=== PATIENT | male | born 1970 | race Caucasian/White ===

== ENCOUNTER → 2018-08-08 | Outpatient (CLI) | payer BC ==
[2018-08-08 15:56] LABS: URINE APPEARANCE CLEAR; URINE BILIRUBIN NEGATIVE (NEGATIVE); URINE BLOOD TRACE (NEGATIVE); URINE COLOR YELLOW; URINE GLUCOSE NEGATIVE (NEGATIVE); URINE KETONE NEGATIVE (NEGATIVE); URINE LEUKOCYTE ESTERASE NEGATIVE (NEGATIVE); URINE NITRATE NEGATIVE (NEGATIVE); URINE PROTEIN(semi-quant) TRACE mg/dL (NEGATIVE); URINE UROBILINOGEN NORMAL (NORMAL); URINE WBC 0-1 /hpf (0-3)
[2018-08-08 15:57] LABS: URINE MUCUS PRESENT (NOT PRESENT)
== END ==
LOC: LAB 14:19
PROVIDERS: Family Medicine
DX: R31.9 Hematuria, unspecified (principal); R39.15 Urgency of urination; R10.11 Right upper quadrant pain; Z72.0 Tobacco use

== ENCOUNTER → 2018-08-15 | Outpatient (CLI) | payer BC ==
[2018-08-15 09:01] LABS: ALBUMIN 4.2 g/dL (3.5-5.0); CALCIUM 9.1 mg/dL (8.4-10.2); POTASSIUM 4.2 mmol/L (3.6-5.0); TOTAL BILIRUBIN 0.6 mg/dL (0.2-1.3); TOTAL PROTEIN 7.2 g/dL (6.3-8.2)
== END ==
LOC: LAB 08:31
PROVIDERS: Family Medicine
DX: Z13.6 Encounter for screening for cardiovascular disorders (principal); R09.89 Other specified symptoms and signs involving the circulatory and respiratory systems; Z82.3 Family history of stroke

== ENCOUNTER → 2018-08-22 | Outpatient (CLI) | payer BC ==
[2018-08-22 16:35] LABS: URINE APPEARANCE CLEAR; URINE BILIRUBIN NEGATIVE (NEGATIVE); URINE BLOOD TRACE (NEGATIVE); URINE COLOR YELLOW; URINE GLUCOSE NEGATIVE (NEGATIVE); URINE KETONE NEGATIVE (NEGATIVE); URINE NITRATE NEGATIVE (NEGATIVE); URINE PROTEIN(semi-quant) TRACE mg/dL (NEGATIVE); URINE UROBILINOGEN NORMAL (NORMAL)
[2018-08-22 16:36] LABS: URINE LEUKOCYTE ESTERASE NEGATIVE (NEGATIVE); URINE WBC 0-1 /hpf (0-3)
== END ==
LOC: LAB 15:09
PROVIDERS: Family Medicine
DX: Z12.5 Encounter for screening for malignant neoplasm of prostate (principal); Z00.00 Encounter for general adult medical examination without abnormal findings; R73.09 Other abnormal glucose; R09.89 Other specified symptoms and signs involving the circulatory and respiratory systems; R31.9 Hematuria, unspecified; Z72.0 Tobacco use

== ENCOUNTER → 2018-11-30 | Outpatient (CLI) | payer BC | LOC: LAB 11:03 | DX: E88.81 Metabolic syndrome and other insulin resistance (principal); I10 Essential (primary) hypertension ==

== ENCOUNTER → 2019-08-16 | Outpatient (CLI) | payer BC ==
[~2019-08-16] VITALS: Ht 175.3 cm; Wt 103.2 kg
[~2019-08-16] MED LIST: ZESTRIL5 M1 PO
[2019-08-16 17:17] LABS: HEMATOCRIT 47.3 % (42.0-52.0); HEMOGLOBIN 15.8 g/dL (13.5-18.0); MEAN PLATELET VOLUME 10.6 fl (7.4-10.4); RED BLOOD COUNT 5.54 M/mm3 (4.20-5.60); WHITE BLOOD COUNT 8.1 K/mm3 (4.8-10.8)
[2019-08-16 17:27] LABS: POTASSIUM 3.7 mmol/L (3.5-5.1); SODIUM 140 mmol/L (136-145)
[2019-08-16 17:28] LABS: CALCIUM 9.6 mg/dL (8.3-10.5); GLUCOSE 92 mg/dL (75-110)
[2019-08-16 17:30] LABS: CARBON DIOXIDE 27 mmol/L (22-29)
[2019-08-16 17:31] VITALS: BP 148/92
[2019-08-16 18:07] LABS: TROPONIN-I < 0.03 ng/mL (<0.030)
== END ==
LOC: LAB 16:53
PROVIDERS: Family Medicine
DX: I45.10 Unspecified right bundle-branch block (principal); I10 Essential (primary) hypertension; E88.81 Metabolic syndrome and other insulin resistance; R73.03 Prediabetes

== ENCOUNTER → 2019-08-22 | Outpatient (CLI) | payer BC ==
[2019-08-16 17:31] VITALS: BP 148/92
[~2019-08-22] MED LIST changes: +TOPROL XL 25MG25 MG PO
== END ==
LOC: VAS 15:47 → RAD 16:00
DX: I10 Essential (primary) hypertension (principal); I45.10 Unspecified right bundle-branch block; R00.2 Palpitations

== ENCOUNTER 2019-08-23 19:55 | Emergency (ER) | payer BC ==
[~2019-08-23] VITALS: Ht 175.3 cm; Wt 103.2 kg
[~2019-08-23 19:55] MED LIST changes: -TOPROL XL 25MG25 MG PO
[2019-08-23 20:40] LABS: BASO # 0.1 (0.02-0.10); EOS # 0.2 (0.04-0.40); EOS % 2.9 % (0.0-4.0); HEMATOCRIT 43.8 % (42.0-52.0); HEMOGLOBIN 14.8 g/dL (13.5-18.0); LYMPH# 3.3 (1.50-4.00); MEAN CELL VOLUME 86 fl (78-100); MEAN CORPUSCULAR HEMOGLOBIN 29 pg (27-31); MEAN CORPUSCULAR HGB CONC 34 g/dL (33-37); MEAN PLATELET VOLUME 10.9 fl (7.4-10.4); MONO # 0.6 (0.20-0.80); NEU # 4.1 (1.40-6.50); PLATELET COUNT 220 K/mm3 (130-400); RED BLOOD COUNT 5.11 M/mm3 (4.20-5.60); RED CELL DISTRIBUTION WIDTH 13.7 % (11.5-14.5); WHITE BLOOD COUNT 8.4 K/mm3 (4.8-10.8)
[2019-08-23 20:47] LABS: POTASSIUM 3.7 mmol/L (3.5-5.1)
[2019-08-23 20:50] LABS: TOTAL PROTEIN 6.9 g/dL (6.4-8.3)
[2019-08-23 20:52] LABS: TOTAL BILIRUBIN 0.4 mg/dL (0.2-1.2)
[2019-08-23 21:15] LABS: D-DIMER 0.29 mg/L FEU (0.15-0.50)
[2019-08-23] MEDS ORDERED: TOPROL XL 25MG25 MG PO (22:00)
[2019-08-23 22:25] VITALS: BP 142/81
== END 2019-08-23 22:19 | disposition home or self-care (01) ==
LOC: ED 19:55
PROVIDERS: Nurse Practitioner Primary Care
DX: I10 Essential (primary) hypertension (principal); E11.9 Type 2 diabetes mellitus without complications; F17.210 Nicotine dependence, cigarettes, uncomplicated

== ENCOUNTER → 2020-01-09 | Outpatient (CLI) | payer BC ==
[~2020-01-09] MED LIST changes: +TOPROL XL 25MG25 MG PO
== END ==
LOC: LAB 12:05
DX: R00.2 Palpitations (principal)

== ENCOUNTER → 2020-10-09 | Outpatient (CLI) | payer BC ==
[2020-10-09 09:39] LABS: POTASSIUM 4.3 mmol/L (3.5-5.1)
[2020-10-09 09:40] LABS: ALBUMIN 4.1 g/dL (3.5-5.0)
[2020-10-09 09:41] LABS: CALCIUM 8.9 mg/dL (8.3-10.5)
[2020-10-09 09:42] LABS: TOTAL PROTEIN 6.9 g/dL (6.4-8.3)
[2020-10-09 09:44] LABS: TOTAL BILIRUBIN 0.8 mg/dL (0.2-1.2)
== END ==
LOC: LAB 09:03
PROVIDERS: Family Medicine
DX: E88.81 Metabolic syndrome and other insulin resistance (principal)

== ENCOUNTER → 2021-04-30 | Outpatient (CLI) | payer OTHER ==
[2021-04-30 14:42] LABS: HEMATOCRIT 45.7 % (42.0-52.0); HEMOGLOBIN 15.7 g/dL (13.5-18.0); MEAN PLATELET VOLUME 10.1 fl (7.4-10.4); RED BLOOD COUNT 5.33 M/mm3 (4.20-5.60); RED CELL DISTRIBUTION WIDTH 12.9 % (11.5-14.5); WHITE BLOOD COUNT 6.7 K/mm3 (4.8-10.8)
[2021-04-30 14:44] LABS: ALBUMIN 4.2 g/dL (3.5-5.0); POTASSIUM 3.8 mmol/L (3.5-5.1)
[2021-04-30 14:46] LABS: CALCIUM 9.2 mg/dL (8.3-10.5)
[2021-04-30 14:47] LABS: TOTAL PROTEIN 7.3 g/dL (6.4-8.3)
[2021-04-30 14:49] LABS: TOTAL BILIRUBIN 0.7 mg/dL (0.2-1.2)
[2021-04-30 14:53] LABS: MAGNESIUM 1.99 mg/dL (1.60-2.60)
== END ==
LOC: LAB 14:08
PROVIDERS: Internal Medicine Cardiovascular Disease
DX: I49.9 Cardiac arrhythmia, unspecified (principal)

== ENCOUNTER 2021-10-25 22:30 | Emergency (ER) | payer OTHER ==
[~2021-10-25] VITALS: Ht 175.3 cm; Wt 96.1 kg
[2021-10-25 23:19] LABS: BASO # 0.05 K/mm3 (0.02-0.10); EOS # 0.33 K/mm3 (0.04-0.40); EOS % 2.9 % (0.0-4.0); HEMATOCRIT 49.2 % (42.0-52.0); HEMOGLOBIN 16.3 g/dL (13.5-18.0); LYMPH# 4.15 K/mm3 (1.50-4.00); MEAN CELL VOLUME 88 fl (78-100); MEAN CORPUSCULAR HEMOGLOBIN 29 pg (27-31); MEAN CORPUSCULAR HGB CONC 33 g/dL (33-37); MEAN PLATELET VOLUME 10.4 fl (7.4-10.4); MONO # 1.23 K/mm3 (0.20-0.80); NEU # 5.46 K/mm3 (1.40-6.50); PLATELET COUNT 225 K/mm3 (130-400); RED BLOOD COUNT 5.57 M/mm3 (4.20-5.60); RED CELL DISTRIBUTION WIDTH 13.5 % (11.5-14.5); WHITE BLOOD COUNT 11.2 K/mm3 (4.8-10.8)
[2021-10-25 23:23] LABS: ALBUMIN 4.2 g/dL (3.5-5.0); SODIUM 142 mmol/L (136-145)
[2021-10-25 23:24] LABS: CALCIUM 9.8 mg/dL (8.3-10.5)
[2021-10-25] MEDS ORDERED: METOPROLOL SUCC50 M1 PO (23:24)
[2021-10-25 23:25] LABS: GLUCOSE 131 mg/dL (75-110); TOTAL PROTEIN 7.6 g/dL (6.4-8.3)
[2021-10-25] MEDS ORDERED: GOOD SENSE ASPI81 M1 PO (23:25)
[2021-10-25 23:27] LABS: CARBON DIOXIDE 24 mmol/L (22-29)
[2021-10-25 23:28] LABS: POTASSIUM 3.3 mmol/L (3.5-5.1)
[2021-10-25 23:31] LABS: AST-SGOT 23 U/L (5-34)
[2021-10-25 23:32] LABS: ALT/SGPT 29 U/L (0-55)
[2021-10-25 23:39] LABS: PARTIAL THROMBOPLASTIN TIME 21.3 SECONDS (21.0-32.0)
[2021-10-25 23:45] LABS: TROPONIN-I < 0.030 ng/mL (<0.030)
[2021-10-25 23:48] LABS: TOTAL BILIRUBIN 0.3 mg/dL (0.2-1.2)
[2021-10-25 23:58] LABS: URINE WBC 0 /hpf (0-3)
[2021-10-25 23:59] LABS: D-DIMER 0.37 mg/L FEU (0.15-0.50); PROTHROMBIN TIME 8.9 SECONDS (9.0-12.0)
[2021-10-26 00:06] LABS: URINE APPEARANCE HAZY; URINE BILIRUBIN NEGATIVE (NEGATIVE); URINE BLOOD NEGATIVE (NEGATIVE); URINE COLOR YELLOW; URINE GLUCOSE NEGATIVE (NEGATIVE); URINE KETONE NEGATIVE (NEGATIVE); URINE LEUKOCYTE ESTERASE NEGATIVE (NEGATIVE); URINE NITRATE NEGATIVE (NEGATIVE); URINE PROTEIN(semi-quant) TRACE (NEGATIVE); URINE UROBILINOGEN NORMAL (NORMAL)
[2021-10-26 00:07] LABS: URINE MUCUS PRESENT (NOT PRESENT)
[2021-10-26 07:52] LABS: BASO # 0.03 K/mm3 (0.02-0.10); EOS # 0.09 K/mm3 (0.04-0.40); EOS % 1.1 % (0.0-4.0); HEMATOCRIT 46.8 % (42.0-52.0); HEMOGLOBIN 15.5 g/dL (13.5-18.0); LYMPH# 1.85 K/mm3 (1.50-4.00); MEAN CELL VOLUME 89 fl (78-100); MEAN CORPUSCULAR HEMOGLOBIN 29 pg (27-31); MEAN CORPUSCULAR HGB CONC 33 g/dL (33-37); MEAN PLATELET VOLUME 10.4 fl (7.4-10.4); MONO # 0.71 K/mm3 (0.20-0.80); NEU # 5.36 K/mm3 (1.40-6.50); PLATELET COUNT 224 K/mm3 (130-400); RED BLOOD COUNT 5.28 M/mm3 (4.20-5.60); RED CELL DISTRIBUTION WIDTH 13.7 % (11.5-14.5); WHITE BLOOD COUNT 8.1 K/mm3 (4.8-10.8)
[2021-10-26 08:00] LABS: ALBUMIN 3.8 g/dL (3.5-5.0)
[2021-10-26 08:01] LABS: POTASSIUM 4.3 mmol/L (3.5-5.1); SODIUM 139 mmol/L (136-145)
[2021-10-26 08:02] LABS: CALCIUM 8.9 mg/dL (8.3-10.5)
[2021-10-26 08:03] LABS: GLUCOSE 135 mg/dL (75-110); TOTAL PROTEIN 6.7 g/dL (6.4-8.3)
[2021-10-26 08:04] LABS: CARBON DIOXIDE 23 mmol/L (22-29)
[2021-10-26 08:05] LABS: TOTAL BILIRUBIN 0.3 mg/dL (0.2-1.2)
[2021-10-26 08:08] LABS: AST-SGOT 17 U/L (5-34)
[2021-10-26 08:09] LABS: ALT/SGPT 26 U/L (0-55)
[2021-10-26 08:16] LABS: TROPONIN-I < 0.030 ng/mL (<0.030)
[2021-10-26] MEDS ORDERED: ELIQUIS5 MG PO (18:57)
[2021-10-26] MEDS ORDERED: TOPROL XL 50MG50 MG PO (18:57)
[2021-10-26 21:30] VITALS: BP 118/85
== END 2021-10-26 21:30 | disposition home or self-care (01) ==
LOC: ED 22:30
PROVIDERS: Nurse Practitioner
DX: I48.91 Unspecified atrial fibrillation (principal); I10 Essential (primary) hypertension; E66.9 Obesity, unspecified; Z20.822 Contact with and (suspected) exposure to COVID-19; Z87.891 Personal history of nicotine dependence; Z68.31 Body mass index [BMI] 31.0-31.9, adult; Z79.899 Other long term (current) drug therapy
CPT/HCPCS: J7030

== ENCOUNTER → 2022-02-16 | Outpatient (CLI) | payer OTHER ==
[~2022-02-16] MED LIST changes: +ELIQUIS5 MG PO; +GOOD SENSE ASPI81 M1 PO; +METOPROLOL SUCC50 M1 PO; +TOPROL XL 50MG50 MG PO
[2022-02-16 10:20] LABS: HEMATOCRIT 48.1 % (42.0-52.0); HEMOGLOBIN 15.8 g/dL (13.5-18.0); MEAN PLATELET VOLUME 10.4 fl (7.4-10.4); RED BLOOD COUNT 5.51 M/mm3 (4.20-5.60); RED CELL DISTRIBUTION WIDTH 13.4 % (11.5-14.5); WHITE BLOOD COUNT 6.4 K/mm3 (4.8-10.8)
[2022-02-16 10:22] LABS: POTASSIUM 4.3 mmol/L (3.5-5.1)
[2022-02-16 10:23] LABS: CALCIUM 9.4 mg/dL (8.3-10.5)
[2022-02-16 10:26] LABS: TOTAL BILIRUBIN 0.4 mg/dL (0.2-1.2)
== END ==
LOC: LAB 09:47
PROVIDERS: Internal Medicine Cardiovascular Disease
DX: Z01.89 Encounter for other specified special examinations (principal)

== ENCOUNTER 2022-06-12 19:02 | Emergency (ER) | payer OTHER ==
[~2022-06-12] VITALS: Ht 175.3 cm; Wt 93.1 kg
[2022-06-12] MEDS ORDERED: CRESTOR40 MG PO (19:14)
[2022-06-12 21:16] VITALS: BP 124/88
== END 2022-06-12 21:16 | disposition home or self-care (01) ==
LOC: ED 19:02
DX: L50.3 Dermatographic urticaria (principal)

== ENCOUNTER → 2024-05-24 | Outpatient (CLI) | payer OTHER ==
[~2024-05-24] MED LIST changes: +CRESTOR40 MG PO
[2024-05-24 07:38] LABS: HEMATOCRIT 48.2 % (42.0-52.0); HEMOGLOBIN 15.5 g/dL (13.5-18.0); MEAN PLATELET VOLUME 10.1 fl (7.4-10.4); RED BLOOD COUNT 5.46 M/mm3 (4.20-5.60); RED CELL DISTRIBUTION WIDTH 13.3 % (11.5-14.5); WHITE BLOOD COUNT 5.6 K/mm3 (4.8-10.8)
[2024-05-24 10:23] LABS: ALBUMIN 4.3 g/dL (3.5-5.0)
[2024-05-24 10:24] LABS: CALCIUM 9.4 mg/dL (8.3-10.5)
[2024-05-24 10:26] LABS: TOTAL PROTEIN 7.1 g/dL (6.4-8.3)
[2024-05-24 10:27] LABS: TOTAL BILIRUBIN 0.5 mg/dL (0.2-1.2)
== END ==
LOC: LAB 07:27
DX: I25.10 Atherosclerotic heart disease of native coronary artery without angina pectoris (principal)

== ENCOUNTER → 2024-10-02 | Outpatient (CLI) | payer OTHER | LOC: RAD 09:11 | DX: M17.11 Unilateral primary osteoarthritis, right knee (principal) ==

== ENCOUNTER → 2024-10-18 | Outpatient (CLI) | payer OTHER ==
[2024-10-18 09:58] LABS: ALBUMIN 4.2 g/dL (3.5-5.0)
[2024-10-18 10:01] LABS: TOTAL PROTEIN 7.7 g/dL (6.4-8.3)
[2024-10-18 10:02] LABS: TOTAL BILIRUBIN 0.8 mg/dL (0.2-1.2)
[2024-10-18 22:25] LABS: HEPATITIS C VIRUS ANTIBODY Nonreactive (Nonreactiv)
== END ==
LOC: LAB 09:40
PROVIDERS: Family Medicine
DX: Z13.1 Encounter for screening for diabetes mellitus (principal); Z11.59 Encounter for screening for other viral diseases; Z11.4 Encounter for screening for human immunodeficiency virus [HIV]; I49.1 Atrial premature depolarization

== ENCOUNTER → 2024-12-19 | Outpatient (CLI) | payer OTHER | LOC: RAD 15:28 | DX: M19.011 Primary osteoarthritis, right shoulder (principal); M25.521 Pain in right elbow ==